=== PATIENT | male | born 1965 | race Caucasian/White ===

== ENCOUNTER 2022-06-07 09:49 | Emergency (ER) | payer BC ==
[2022-06-07 10:41] VITALS: BP 131/78; PULSE 95
[2022-06-07] MEDS: Sodium Chloride 0.9% 1,000 ML IV ONE (11:00)
[2022-06-07 11:18] LABS: ANION GAP 12.2 mmol/L (5-15); CHLORIDE,CL 104 mmol/L (98-107); SODIUM,NA 140 mmol/L (136-145)
[2022-06-07 11:19] LABS: ESTIMATED GFR 104 mL/min (>=60)
== END 2022-06-07 12:40 | disposition home or self-care (01) ==
LOC: KA.ED 09:49
DX: T58.91XA Toxic effect of carbon monoxide from unspecified source, accidental (unintentional), initial encounter (principal); R42 Dizziness and giddiness
CPT/HCPCS: 36415; 80053; 82375; 84484; 85025; 96360; 99284; 99284-25; J7030